=== PATIENT | female | born 1985 | race African-American/Black ===

== ENCOUNTER 2016-08-08 10:56 | Emergency (ER) | payer MEDICAID ==
[2016-08-08] MEDS ORDERED: ACETAMINOPHEN 325 MG TABLET PO ONE (11:10)
--- NOTE | 2016-08-08 11:10 | ER Document Report ---
ED Medical Screen (RME) - General Stated Complaint: FACE INJURY,DOG BITE Notes: patient is a 31 year old female who was bit by an acquaintances dog. UTD on vaccines. UTD on tetanus two wounds along the left jaw into subq fat, minimal bleeding I have greeted and performed a rapid initial assessment of this patient. A comprehensive ED assessment and evaluation of the patient, analysis of test results and completion of the medical decision making process will be conducted by additional ED providers. - Related Data Allergies/Adverse Reactions: No Known Allergies Allergy (Verified 02/02/12 09:01) Past Medical History - Past Medical History Cardiac Medical History: Reports: Hx Hypertension - Immunizations Hx Diphtheria, Pertussis, Tetanus Vaccination: Yes
--- NOTE | 2016-08-08 11:37 | ER Document Report ---
ED Animal Bite - General Chief Complaint: Dog Bite Stated Complaint: FACE INJURY,DOG BITE Mode of Arrival: Ambulatory Information source: Patient TRAVEL OUTSIDE OF THE [place] IN LAST 30 DAYS: No - HPI Location of injury: Face - LEFT SUB-MANDIBULAR / PLATYSMA AREA Severity of injury: Bitten Onset: Just prior to arrival Quality of pain: Dull Context of attack: Entered animal's domain Summary of what happened: DOG WAS IN [place] CAGE, CHEWING ON SOMETHING INAPPROPRIATE, PATIENT REACHED TO RETRIEVE IT FROM DOG'S GRASP & DOG JUMPED UP & BIT HER. Type of animal: Dog Appearance of animal: Appeared well Animal's immunizations: UTD Animal captured or known: Yes - Related Data Allergies/Adverse Reactions: No Known Allergies Allergy (Verified 08/08/16 11:23) Home Medications: Current Home Medications Azithromycin [Zithromax] 250 mg PO DAILY 08/08/16 [History] Past Medical History - General Information source: Patient - Social History Smoking Status: Current Some Day Smoker Cigarette use (# per day): Yes Chew tobacco use (# tins/day): No Smoking Education Provided: No Frequency of alcohol use: None Drug Abuse: None Lives with: Family Family History: Reviewed & Not Pertinent Patient has suicidal ideation: No Patient has homicidal ideation: No - Past Medical History Cardiac Medical History: Reports: Hx Hypertension Pulmonary Medical History: Reports: None Neurological Medical History: Reports: None Endocrine Medical History: Reports: None. Denies: Hx Diabetes Mellitus Type 1, Hx Diabetes Mellitus Type 2 Renal/ Medical History: Reports: None. Denies: Hx Peritoneal Dialysis Malignancy Medical History: Reports: None GI Medical History: Reports: None Musculoskeltal Medical History: Reports None Psychiatric Medical History: Reports: None Surgical Hx: Negative - Immunizations Hx Diphtheria, Pertussis, Tetanus Vaccination: Yes Review of Systems - Review of Systems Constitutional: No symptoms reported EENT: No symptoms reported Cardiovascular: No symptoms reported Gastrointestinal: Other - RECENT URI, ON AZITHROMYCIN Genitourinary: No symptoms reported Female Genitourinary: No symptoms reported Musculoskeletal: No symptoms reported Skin: See HPI Neurological/Psychological: No symptoms reported Physical Exam - Vital signs Vitals: Temp Pulse Resp BP Pulse Ox 98.6 F 78 17 163/86 H 97 08/08/16 11:05 08/08/16 11:05 08/08/16 11:05 08/08/16 11:05 08/08/16 11:05 Interpretation: Hypertensive - General General appearance: Appears well, Alert In distress: None - HEENT Head: Open wounds - SEE GRAPHIC Eyes: Normal Conjunctiva: Normal Ears: Normal Nasal: Normal Mouth/Lips: Normal Mucous membranes: Normal Neck: Other - SKIN WOUNDS (SEE GRAPHIC) - Respiratory Respiratory status: No respiratory distress - Cardiovascular Rhythm: Regular - Abdominal Distension: No distension - Extremities General upper extremity: Normal inspection General lower extremity: Normal inspection - Neurological Neuro grossly intact: Yes Cognition: Normal Orientation: AAOx4 Notes: FACIAL SMILE SYMMETRICAL - Psychological Associated symptoms: Normal affect, Normal mood - Skin Skin Temperature: Warm Skin Moisture: Dry Skin Color: Normal Skin Turgor: Elastic Skin irregularity: Laceration Location of irregularity: Face Course - Vital Signs Vital signs: Temp Pulse Resp BP Pulse Ox 98.6 F 78 17 163/86 H 97 08/08/16 11:05 08/08/16 11:05 08/08/16 11:05 08/08/16 11:05 08/08/16 11:05 Procedures - Laceration/Wound Repair Left Face Time completed: 12:50 Wound length (cm): 5.4 Wound's Depth, Shape: Superficial, Irregular, Contused tissue, Other - DEPTH INTO SQ FAT ONLY Laceration pre-procedure: Shur-Clens applied Anesthetic type: 2% Lidocaine Volume Anesthetic (mLs): 4 Wound explored: Clean Irrigated w/ Saline (mLs): 60 Wound Debrided: Minimal Wound Repaired With: Sutures Suture Size/Type: 5:0, Prolene Number of Sutures: 10 Layer Closure?: No Post-procedure wound care: Sterile dressing applied Post-procedure NV exam normal: Yes Complications: No Adult Head Front/Back picture: 1 - 3.2 cm LAC, SUTURED 2 - 2.2 cm LAC, SUTURED Discharge - Discharge Clinical Impression: Dog bite of face Qualifiers: Encounter type: initial encounter Qualified Code(s): S01.85XA - Open bite of other part of head, initial encounter; W54.0XXA - Bitten by dog, initial encounter Face lacerations Qualifiers: Encounter type: initial encounter Qualified Code(s): S01.81XA - Laceration without foreign body of other part of head, initial encounter Condition: Stable Disposition: HOME, SELF-CARE Instructions: Laceration Care ([facility]), Prophylactic Antibiotic ([facility]), Soap Cleansing ([facility]), Antibiotic Ointment Protection ([facility]) Additional Instructions: TAKE AUGMENTIN DIRECTED, BEGIN TODAY SOON YOU GET IT. CONTINUE TAKING AZITHROMYCIN DIRECTED. RETURN FOR SUTURE REMOVAL IN 4 DAYS (TUESDAY, AUGUST 12). RETURN SOONER IF PROBLEMS, ANY TIME. Prescriptions: Amox Tr/Potassium Clavulanate [Augmentin 500-125 Tablet] 1 each PO Q8 #21 tablet
[2016-08-08] MEDS ORDERED: LIDOCAINE 2% INJ (20 MG/ML) 20 ML MDV INJ ONE (11:50)
[2016-08-08 13:14] VITALS: BP 149/88
== END 2016-08-08 13:14 | disposition home or self-care (01) ==
LOC: ER 10:56
PROC: 0HQ1XZZ Repair Face Skin, External Approach (ICD-10-PCS; principal; 2016-08-08)
DX: S01.85XA Open bite of other part of head, initial encounter (principal); S01.81XA Laceration without foreign body of other part of head, initial encounter; W54.0XXA Bitten by dog, initial encounter; F17.210 Nicotine dependence, cigarettes, uncomplicated
CPT/HCPCS: 99283; 12014; J3490 ×2

== ENCOUNTER 2016-08-12 10:36 | Emergency (ER) | payer MEDICAID ==
[2016-08-12 10:48] VITALS: BP 142/76
--- NOTE | 2016-08-12 11:20 | ER Document Report ---
ED Medical Screen (RME) - General Stated Complaint: SUTURE REMOVAL Mode of Arrival: Ambulatory Information source: Patient Notes: Patient here for suture removal to left side of neck. Sutures were placed 5 days ago. I have greeted and performed a rapid initial assessment of this patient. A comprehensive ED assessment and evaluation of the patient, analysis of test results and completion of the medical decision making process will be conducted by additional ED providers. TRAVEL OUTSIDE OF THE [place] IN LAST 30 DAYS: No - Related Data Allergies/Adverse Reactions: No Known Allergies Allergy (Verified 08/12/16 11:19) Past Medical History - Past Medical History Cardiac Medical History: Reports: Hx Hypertension Endocrine Medical History: Denies: Hx Diabetes Mellitus Type 1, Hx Diabetes Mellitus Type 2 Renal/ Medical History: Denies: Hx Peritoneal Dialysis - Immunizations Hx Diphtheria, Pertussis, Tetanus Vaccination: Yes Physical Exam - Vital signs Vitals: Temp Pulse Resp BP Pulse Ox 98.4 F 82 14 142/76 H 99 08/12/16 10:47 08/12/16 10:47 08/12/16 10:47 08/12/16 10:47 08/12/16 10:47 - Skin Skin irregularity: Laceration - Sutured laceration to left side of neck Course - Vital Signs Vital signs: Temp Pulse Resp BP Pulse Ox 98.4 F 82 14 142/76 H 99 08/12/16 10:47 08/12/16 10:47 08/12/16 10:47 08/12/16 10:47 08/12/16 10:47
--- NOTE | 2016-08-12 12:20 | ER Document Report ---
ED Suture/Wound Recheck - General Chief Complaint: Laceration Stated Complaint: SUTURE REMOVAL Time seen by provider: 12:18 Mode of Arrival: Ambulatory Information source: Patient Notes: 81-year-old female presents to ED for removal of a running suture from her left chin. Patient states she was bit by a dog 5 days ago. Incision looks clean and healing well no drainage no redness no discomfort. TRAVEL OUTSIDE OF THE [place] IN LAST 30 DAYS: No - HPI Previous ED treatment: Laceration repair Antibiotics given previously: Prescription Quality of pain: No pain Severity: None Pain Level: Denies Context: Injury Symptoms since procedure: No complaints Exacerbated by: Denies Relieved by: Denies - Related Data Allergies/Adverse Reactions: No Known Allergies Allergy (Verified 08/12/16 11:19) Past Medical History - General Information source: Patient - Social History Smoking Status: Current Some Day Smoker Smoking Education Provided: No Frequency of alcohol use: Social Drug Abuse: None Occupation: cleans [employer] Lives with: Other - Roommate Family History: Reviewed & Not Pertinent - Denies any known family history - Past Medical History Cardiac Medical History: Reports: Hx Hypertension Pulmonary Medical History: Reports: None EENT Medical History: Reports: None Neurological Medical History: Reports: None Endocrine Medical History: Reports: None Renal/ Medical History: Reports: None Malignancy Medical History: Reports: None GI Medical History: Reports: None Musculoskeltal Medical History: Reports None Skin Medical History: Reports None Psychiatric Medical History: Reports: None Traumatic Medical History: Reports: None Infectious Medical History: Reports: None Surgical Hx: Negative Past Surgical History: Reports: None - Immunizations Immunizations up to date: Yes Hx Diphtheria, Pertussis, Tetanus Vaccination: Yes Review of Systems - Review of Systems Constitutional: No symptoms reported EENT: No symptoms reported Cardiovascular: No symptoms reported Respiratory: No symptoms reported Gastrointestinal: No symptoms reported Genitourinary: No symptoms reported Female Genitourinary: No symptoms reported Musculoskeletal: No symptoms reported Skin: Other - States she needs sutures removed denies pain discomfort or drainage Hematologic/Lymphatic: No symptoms reported Neurological/Psychological: No symptoms reported -: Yes All other systems reviewed and negative Physical Exam - Vital signs Vitals: Temp Pulse Resp BP Pulse Ox 98.4 F 82 14 142/76 H 99 08/12/16 10:47 08/12/16 10:47 08/12/16 10:47 08/12/16 10:47 08/12/16 10:47 Interpretation: Normal - General General appearance: Appears well, Alert - HEENT Head: Normocephalic, Atraumatic Eyes: Normal Pupils: PERRL - Respiratory Respiratory status: No respiratory distress Chest status: Nontender Breath sounds: Normal Chest palpation: Normal - Cardiovascular Rhythm: Regular Heart sounds: Normal auscultation Murmur: No - Abdominal Inspection: Normal Distension: No distension Bowel sounds: Normal Tenderness: Nontender Organomegaly: No organomegaly - Back Back: Normal, Nontender - Extremities General upper extremity: Normal inspection, Nontender, Normal color, Normal ROM , Normal temperature General lower extremity: Normal inspection, Nontender, Normal color, Normal ROM , Normal temperature, Normal weight bearing. No: Michael's sign - Neurological Neuro grossly intact: Yes Cognition: Normal Orientation: AAOx4 Jones Coma Scale Eye Opening: Spontaneous Telford Coma Scale Verbal: Oriented Jones Coma Scale Motor: Obeys Commands Telford Coma Scale Total: 15 Speech: Normal Motor strength normal: LUE, RUE, LLE, RLE Sensory: Normal - Psychological Associated symptoms: Normal affect, Normal mood - Skin Skin Temperature: Warm Skin Moisture: Dry Skin Color: Normal Location of irregularity: Other - Sutures to left chin need to be removed have been in 5 days well approximated no drainage no redness no discomfort Course - Re-evaluation Re-evalutation: 08/12/16 12:25 Sutures removed by the nurse patient tolerated well patient will be discharged home to follow up with her primary doctor as needed. - Vital Signs Vital signs: Temp Pulse Resp BP Pulse Ox 98.4 F 82 14 142/76 H 99 08/12/16 10:47 08/12/16 10:47 08/12/16 10:47 08/12/16 10:47 08/12/16 10:47 Discharge - Discharge Clinical Impression: Visit for suture removal Condition: Stable Disposition: HOME, SELF-CARE Instructions: Suture Removal Additional Instructions: Antibiotic Ointment Protection Your wounds are such that dressing them is not practical or optional. After cleansing, you should apply a thin coating of antibiotic ointment ( Bacitracin, not Neosporin) to the wounds at least three times daily. This lessens infection risk, and may decrease the amount of scarring. Use a q-tip or dull butter knife, not your finger, to apply this ointment. Any debris or ooze which builds up in the ointment should be gently rubbed off with a sterile gauze pad. Harder crusting may need to be gently scrubbed off with a clean wash cloth with soap and warm water, perhaps applying a warm, wet wash cloth to the wound for ten minutes first. Development of redness, severe itching, or blistering may mean allergy to the ointment. See the doctor. Acetaminophen Acetaminophen may be taken for pain relief or fever control. It's much safer than aspirin, offering a wider range of "safe" dosages. It is safe during . Some brand names are Tylenol, Panadol, Datril, Anacin 3, Tempra, and Liquiprin. Acetaminophen can be repeated every four hours. The following are maximum recommended dosages: WEIGHT Dose Drops Elixir Chewable( 80mg) (LBS.) drprs=droppers tsp=teaspoon 6 40 mg .4 ml (1/2) 6-11 80 mg .8 ml (full) 1/2 tsp 1 tab 12-16 120 mg 1 1/2 drprs 3/4 tsp 1 1/2 tabs 17-23 160 mg 2 drprs 1 tsp 2 tabs 24-30 240 mg 3 drprs 1 1/2 tsp 3 tabs 30-35 320 mg 2 tsp 4 tabs 36-41 360 mg 2 1/4 tsp 4 1 /2 tabs 42-47 400 mg 2 1/2 tsp 5 tabs 48-53 480 mg 3 tsp 6 tabs 54-59 520 mg 3 1/4 tsp 6 1 /2 tabs 60-64 560 mg 3 1/2 tsp 7 tabs 65-70 600 mg 3 3/4 tsp 7 1 /2 tabs 71-76 640 mg 4 tsp 8 tabs 77-82 720 mg 4 1/2 tsp 9 tabs 83-88 800 mg 5 tsp 10 tabs >89 pounds or adults 650 mg to 900 mg Acetaminophen can be repeated every four hours. Maximum daily dose not to exceed 4000 mg. These maximum recommended dosages are slightly higher than the dosages written on the product container, but these dosages are very safe and well below the toxic dosage for acetaminophen. FOLLOW-UP CARE: If you have been referred to a physician for follow-up care, call the physician s office for an appointment as you were instructed or within the next two days. If you experience worsening or a significant change in your symptoms, notify the physician immediately or return to the Emergency Department at any time for re-evaluation. Forms: Elevated Blood Pressure Referrals: ABDULAZIZ FERNANDES FNP-C [Primary Care Provider] - Follow up as needed
== END 2016-08-12 12:24 | disposition home or self-care (01) ==
LOC: ER 10:36
DX: S01.85XD Open bite of other part of head, subsequent encounter (principal); W54.0XXD Bitten by dog, subsequent encounter; I10 Essential (primary) hypertension; F17.200 Nicotine dependence, unspecified, uncomplicated